=== PATIENT | male | born 1935 | race Caucasian/White ===

== ENCOUNTER 2016-10-20 18:44 | Emergency (ER) | payer OTHER ==
[~2016-10-20] VITALS: Ht 182.9 cm; Wt 83.9 kg
--- NOTE | ~2016-10-20 | EKG ---
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 [place] : 1935 Requested By: Manuel Ortega Order Number: [id number] MD: Pierce Nunez Measurements Intervals [place] Rate: 54 P: 54 [place]: 191 QRS: -60 QRSD: 121 T: 23 QT: 476 QTc: 452 Interpretive Statements Sinus rhythm Atrial premature complex Nonspecific intraventricular conduction delay Left anterior fascicular block No previous ECGs available for comparison Electronically Signed On 10-21-2016 13:44:28 [employer] by Pierce Nunez [email or web address] <ELECTRONICALLY SIGNED> By: Pierce Nunez MD, [facility] 10/21/16 1344 1847 184 Pierce Nunez MD, FACC /EPI
[~2016-10-20 18:44] MED LIST: AMARYL2 MG PO; FISH OIL 1,001000 M2 PO; METFORMIN HCL500 MG PO; OXYCODONE HCL 55 MG PO; RED WINE EXTRA PO; VITAMIN B-12500 MCG PO; VITAMIN E400 UNIT PO; [UNRECOGNIZED DRUG - OTHER] PO
[2016-10-20 19:21] LABS: ABSOLUTE NEUTROPHILS 2.6 thou/uL (1.4-8.2); EOSINOPHILS 5.7 % (0.0-3.0); HEMATOCRIT 39.8 % (42.0-52.0); HEMOGLOBIN 13.5 gm/dL (14.0-18.0); LYMPHOCYTES 34.4 % (24.0-44.0); MCH 31.6 pg (26.0-34.0); MCHC 33.9 % (28.0-37.0); MCV 93.2 fL (80.0-100.0); MONOCYTES 8.9 % (1.0-8.0); PLATELET COUNT 216 thou/uL (150-400); RBC 4.27 mil/uL (4.50-6.00); RDW 13.6 % (10.5-14.5); WBC 5.3 thou/uL (4.0-11.0)
[2016-10-20 19:23] LABS: MANUAL DIFF NO
[2016-10-20 19:31] LABS: APTT 27.8 Seconds (24.5-32.8); INR 1.1; PROTIME 11.3 Seconds (9.3-11.4)
[2016-10-20 19:34] LABS: ANION GAP 4 mmol/L (7-16); BUN 23 mg/dL (7-18); CALCIUM 8.7 mg/dL (8.5-10.1); CHLORIDE 101 mmol/L (98-107); CO2 32 mmol/L (21-32); CREATININE 0.9 mg/dL (0.6-1.3); GLUCOSE 226 mg/dL (70-99); POTASSIUM 4.2 mmol/L (3.5-5.1); SODIUM 137 mmol/L (136-145)
[2016-10-20 19:53] LABS: ALBUMIN 3.3 g/dL (3.4-5.0); ALKALINE PHOSPHATASE 63 U/L (46-116); MAGNESIUM 1.8 mg/dL (1.8-2.4); NT-PRO BRAIN NAT PEPTIDE 137 pg/mL (<300); SALICYLATE < 2.8 mg/dL (2.8-20.0); SGOT 12 U/L (15-37); SGPT 24 U/L (30-65); TOTAL BILIRUBIN 0.4 mg/dL (<0.1-1.0); TOTAL PROTEIN 6.4 g/dL (6.4-8.2); TROPONIN-I < 0.04 ng/mL (<0.04-0.07)
[2016-10-20 19:54] LABS: ACETAMINOPHEN < 2 ug/mL (10-30)
[2016-10-20 20:59] LABS: URINE BILIRUBIN NEGATIVE (Negative); URINE BLOOD NEGATIVE (Negative); URINE COLOR YELLOW; URINE GLUCOSE-RANDOM* 2+ (Negative); URINE KETONES NEGATIVE (Negative); URINE NITRITE NEGATIVE (Negative); URINE PROTEIN (DIPSTICK) NEGATIVE (Negative); URINE SPECIFIC GRAVITY 1.015 (1.003-1.035); URINE UROBILINOGEN 0.2 E.U./dl (0.2-1.0)
[2016-10-20 21:22] LABS: AMP/METHAMP Negative (Negative); BARBITURATES Negative (Negative); BENZODIAZEPINES Negative (Negative); COCAINE Negative (Negative); METHADONE Negative (Negative); OPIATES Negative (Negative); PCP Negative (Negative); THC Negative (Negative)
== END 2016-10-20 23:07 | disposition home or self-care (01) ==
LOC: ER 18:44
PROVIDERS: Emergency Medicine
DX: F03.90 Unspecified dementia, unspecified severity, without behavioral disturbance, psychotic disturbance, mood disturbance, and anxiety (principal); E11.9 Type 2 diabetes mellitus without complications

== ENCOUNTER 2017-01-29 17:29 | Inpatient (IN) | payer OTHER ==
[~2017-01-29] VITALS: Ht 182.9 cm; Wt 74.3 kg
--- NOTE | ~2017-01-29 | 2DMMODE ---
[facility] [address] [place] [address] 2 D/M-MODE ECHOCARDIOGRAM Name: GRACIELA HSU Room #: 451-P ADM IN M.R.#: [id number] Admission: 01/29/17 Attend Phys: August Todd Discharge: Date of : 35 Date of Service: 01/30/17 1225 Report #: [id number] THIS REPORT FOR: //name// APPROVED REPORT Study performed: 01/30/2017 10:12:09 EXAM: Comprehensive 2D, Doppler, and color-flow Echocardiogram Patient Location: Echo lab Room #: [facility] Blood Pressure: 170/69 mmHg HR: 65 bpm Rhythm: NSR Other Information Study Quality: Adequate/technically difficult due to body habitus and lung artifact. Indications Falls, dizziness. Hx: HTN, DM 2D Dimensions RVDd: 30.94 mm LVEF(%): 75.52 (>50%) IVSd: 11.33 (7-11mm) LVOT Diam: 22.45 (18-24mm) LVDd: 48.03 mm PWd: 10.01 (7-11mm) LVDs: 26.73 (25-40mm) Aortic Root: 38.04 mm Benito's LVEF: 75.52 % Volumes Left Atrial Volume (Systole) Single Plane 4CH: 33.16 mL Aortic Valve AoV Peak Jamele.: 0.97 m/s AO Peak Gr.: 3.78 mmHg LVOT Max P.68 mmHg LVOT Max V: 0.96 m/s CHENG Vmax: 3.90 cm2 Mitral Valve E/A Ratio: 0.5 [facility] [address] [place] [address] 2 D/M-MODE ECHOCARDIOGRAM Name: ARACELISGRACIELA CHRISLEY Room #: 451-P [facility] IN M.R.#: [id number] Admission: 01/29/17 Attend Phys: August Todd Discharge: Date of : 35 Date of Service: 01/30/17 1225 Report #: [id number] MV Decel. Time: 417.21 ms MV E Max Jameel.: 0.38 m/s MV A Jameel.: 0.72 m/s MV PHT: 120.99 ms IVRT: 96.89 ms Pulmonary Valve PV Peak Jameel.: 0.92 m/s PV Peak Gr.: 3.37 mmHg Tricuspid Valve TR Peak Jameel.: 2.49 m/s RAP Estimate: 5.00 mmHg TR Peak Gr.: 24.78 mmHg RVSP: 30.00 mmHg Left Ventricle The left ventricle is normal size. There is normal LV segmental wall motion. Mild basal septal hypertrophy is present. Left ventricular systolic function is normal. LVEF is 60%. Grade I - abnormal relaxation pattern. Right Ventricle The right ventricle is normal size. The right ventricular systolic function is normal. Atria Left atrium is mildly dilated. The right atrium size is normal. Aortic Valve The Aortic valve is mildly sclerotic. No aortic regurgitation is present. There is no aortic valvular stenosis. Mitral Valve The mitral valve is mildly thickened. Trace mitral regurgitation. No evidence of mitral valve stenosis. Tricuspid Valve The tricuspid valve is normal in structure. There is mild to moderate tricuspid regurgitation. The right atrial pressure is estimated at 5 mmHg. There is borderline mild pulmonary hypertension with an estimated PAP of 30mmHg. Pulmonic Valve The pulmonary valve is normal in structure. Trace pulmonic regurgitation. [employer] [facility] [address] [place] [address] 2 D/M-MODE ECHOCARDIOGRAM Name: GRACIELA HSU Room #: 451-P ADM IN M.R.#: [id number] Admission: 01/29/17 Attend Phys: August Todd Discharge: Date of : 35 Date of Service: 01/30/17 1225 Report #: [id number] Aortic root is borderline dilated. Ascending aorta is not well visualized. IVC is normal in size and collapses >50% with inspiration. Pericardium There is no pericardial effusion. <Conclusion> The left ventricle is normal size. LVEF is 60%. Left atrium is mildly dilated. The Aortic valve is mildly sclerotic. The mitral valve is mildly thickened. Trace mitral regurgitation. The tricuspid valve is normal in structure. There is mild to moderate tricuspid regurgitation. The right atrial pressure is estimated at 5 mmHg. There is borderline mild pulmonary hypertension with an estimated PAP of 30mmHg. Trace pulmonic regurgitation. Aortic root is borderline dilated. <ELECTRONICALLY SIGNED> By: Harlan Cuenca MD 01/30/17 1225 1225 1225 Harlan Cuenca MD /INF
--- NOTE | ~2017-01-29 | EKG ---
[address] [address] ELECTROCARDIOGRAM REPORT Name: GRACIELA HSU Room #: 451-P ADM IN M.R.#: [id number] Admission: 01/29/17 Attend Phys: Zach Borges MD Discharge: Date of : 35 Report #: [id number] THIS REPORT FOR: //name// [facility] ED Test Date: 2017-01-29 Test Time: 19:15:46 Pat Name: GRACIELA HSU Department: Room: 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1935 Requested By: Reese Guerra Order Number: [id number] MD: Kolton Birch Measurements Intervals [place] Rate: 49 P: 66 [place]: 163 QRS: -77 QRSD: 116 T: 40 QT: 483 QTc: 437 Interpretive Statements Sinus rhythm Atrial premature complexes Left anterior fascicular block Probable anteroseptal infarct, old Compared to ECG 10/20/2016 18:47:42 Myocardial infarct finding now present Intraventricular conduction delay no longer present Electronically Signed On 01-31-2017 9:49:05 CDT by Kolton Birch [email or web address] <ELECTRONICALLY SIGNED> By: Kolton Birch MD 01/31/17 0949 14 14 Kolton Birch MD /EPI
[2017-01-29 17:33] VITALS: BP 155/88
[2017-01-29 17:50] LABS: ABSOLUTE NEUTROPHILS 4.9 thou/uL (1.4-8.2); BASOPHILS 1.5 % (0.0-2.0); EOSINOPHILS 4.1 % (0.0-3.0); HEMOGLOBIN 14.4 gm/dL (14.0-18.0); LYMPHOCYTES 25.2 % (24.0-44.0); MCH 31.2 pg (26.0-34.0); MCHC 33.5 g/dL (28.0-37.0); MCV 93.2 fL (80.0-100.0); MONOCYTES 7.9 % (1.0-8.0); PLATELET COUNT 200 thou/uL (150-400); POLYS 61.3 % (36.0-66.0); RBC 4.62 mil/uL (4.50-6.00); RDW 14.1 % (10.5-14.5)
[2017-01-29 17:52] LABS: MANUAL DIFF NO
[2017-01-29 17:58] LABS: ANION GAP 5 mmol/L (7-16); BUN 25 mg/dL (7-18); CHLORIDE 102 mmol/L (98-107); CO2 32 mmol/L (21-32); GLUCOSE 297 mg/dL (74-106); POTASSIUM 4.4 mmol/L (3.5-5.1); SODIUM 139 mmol/L (136-145)
[2017-01-29 18:05] LABS: ALBUMIN 3.6 g/dL (3.4-5.0); ALKALINE PHOSPHATASE 63 U/L (46-116); SGOT 14 U/L (15-37); SGPT 20 U/L (30-65); TOTAL BILIRUBIN 0.8 mg/dL (<0.1-1.0); TOTAL PROTEIN 6.9 g/dL (6.4-8.2); TROPONIN-I < 0.04 ng/mL (<0.04-0.07)
[2017-01-29 19:37] LABS: URINE BILIRUBIN NEGATIVE (Negative); URINE BLOOD NEGATIVE (Negative); URINE COLOR YELLOW; URINE GLUCOSE-RANDOM* 2+ (Negative); URINE KETONES NEGATIVE (Negative); URINE LEUKOCYTES-REFLEX NEGATIVE (Negative); URINE PROTEIN (DIPSTICK) NEGATIVE (Negative); URINE SPECIFIC GRAVITY 1.025 (1.003-1.035)
[2017-01-29 20:58] VITALS: BP 130/81; BP 137/83
[2017-01-29 21:20] VITALS: BP 131/62
[2017-01-30 03:40] VITALS: BP 134/63
[2017-01-30 07:08] VITALS: BP 170/69
[2017-01-30 16:46] VITALS: BP 165/62
[2017-01-30 20:05] VITALS: BP 136/62
[2017-01-31] VITALS (7 sets, daily range): BP systolic 98–145; BP diastolic 57–77
[2017-01-31 04:07] LABS: GLYCOHEMOGLOBIN (HGB A1C) 8.5 % (4.8-5.6)
[2017-01-31 05:53] LABS: EOSINOPHILS 4.1 % (0.0-3.0); HEMATOCRIT 42.3 % (42.0-52.0); HEMOGLOBIN 14.4 gm/dL (14.0-18.0); LYMPHOCYTES 24.2 % (24.0-44.0); MCH 31.4 pg (26.0-34.0); MCV 92.2 fL (80.0-100.0); MONOCYTES 7.6 % (1.0-8.0); PLATELET COUNT 191 thou/uL (150-400); POLYS 63.1 % (36.0-66.0); RBC 4.59 mil/uL (4.50-6.00); RDW 14.1 % (10.5-14.5); WBC 7.9 thou/uL (4.0-11.0)
[2017-01-31 06:00] LABS: CALCIUM 9.1 mg/dL (8.5-10.1); CREATININE 0.9 mg/dL (0.7-1.3); MAGNESIUM 1.7 mg/dL (1.8-2.4); MANUAL DIFF NO; POTASSIUM 4.1 mmol/L (3.5-5.1)
[2017-02-01 08:33] VITALS: BP 124/62
[2017-02-01] MEDS ORDERED: HYDROCHLOROTH12.5 M1 PO (12:24)
[2017-02-01 12:29] VITALS: BP 133/70
[2017-02-01 19:41] VITALS: BP 114/62
[2017-02-02 03:28] VITALS: BP 113/75
[2017-02-02 07:16] VITALS: BP 142/67
== END 2017-02-02 13:20 | DRG 948 ==
LOC: ER 17:29 → EROBS 19:58 → 4W 19:58
PROVIDERS: Internal Medicine; Nurse Practitioner Acute Care; Physician Assistant
DX: R53.81 Other malaise (principal); R29.6 Repeated falls; F03.90 Unspecified dementia, unspecified severity, without behavioral disturbance, psychotic disturbance, mood disturbance, and anxiety; I10 Essential (primary) hypertension; E11.649 Type 2 diabetes mellitus with hypoglycemia without coma
CPT/HCPCS: 10040